=== PATIENT | female | born 1970 | race Caucasian/White ===

== ENCOUNTER 2016-08-04 10:35 | Outpatient (CLI) | payer OTHER | END 2016-08-04 10:36 | disposition home or self-care (01) | DX: J02.9 Acute pharyngitis, unspecified (principal) ==

== ENCOUNTER 2017-05-25 08:00 | Outpatient (CLI) | payer OTHER ==
[2017-05-25 18:52] LABS: HGB - HEMOGLOBIN 9.9 g/dL (12.0-16.0); MONOCYTES # (AUTO) 0.5 10^3/uL (0.0-1.0); NEUTROPHILS # (AUTO) 5.5 10^3/uL (1.5-6.6); RED CELL DISTRIBUTION WIDTH 16.6 % (12.0-15.0)
[2017-05-25 19:23] LABS: ALBUMIN 4.1 g/dL (3.2-5.5); ALBUMIN/GLOBULIN RATIO 1.4 (1.0-2.2); ALKALINE PHOSPHATASE 51 IU/L (42-121); ALT ALANINE AMINOTRANSFERASE 13 IU/L (10-60); AST ASPARTATE AMINOTRANSFERASE 20 IU/L (10-42); BILIRUBIN,TOTAL < 0.2 mg/dL (0.2-1.0); BUN - BLOOD UREA NITROGEN 16 mg/dL (6-20); CALCIUM 8.8 mg/dL (8.5-10.3); CARBON DIOXIDE - CO2 27 mmol/L (21-32); CHLORIDE 101 mmol/L (101-111); GFR - MDRD 60 (>89); GLUCOSE 170 mg/dL (70-100); SODIUM 135 mmol/L (135-145)
[2017-05-25 19:26] LABS: BASOPHILS % (AUTO) 0.6 %; EOSINOPHILS % (AUTO) 0.4 %; LYMPHOCYTES # (AUTO) 1.4 10^3/uL (1.5-3.5); LYMPHOCYTES % (AUTO) 18.9 %; MEAN CORPUSCULAR HEMOGLOBIN 25.1 pg (27.0-31.0); MEAN CORPUSCULAR HGB CONC 32.1 g/dL (32.0-36.0); MEAN CORPUSCULAR VOLUME 78.2 fL (81.0-99.0); MEAN PLATELET VOLUME 10.4 fL (7.9-10.8); MONOCYTES % (AUTO) 6.2 %; NEUTROPHILS % (AUTO) 73.9 %; PLT - PLATELET COUNT 176 10^3/uL (130-450); RED BLOOD COUNT 3.94 10^6/uL (4.20-5.40); WHITE BLOOD COUNT 7.5 x10^3/uL (4.8-10.8)
[2017-05-25 19:47] LABS: CRP - C-REACTIVE PROTEIN < 1.0 mg/dL (0-1.0)
== END 2017-05-25 08:01 | disposition home or self-care (01) ==
LOC: LAB.R 08:00
PROVIDERS: ATTEND Physician Assistant Medical
DX: R19.7 Diarrhea, unspecified (principal)
CPT/HCPCS: 80053; 85025; 85651; 86140

== ENCOUNTER 2017-06-26 08:10 | Outpatient (CLI) | payer OTHER ==
[2017-06-26 08:41] LABS: BASOPHILS % (AUTO) 1.1 %; EOSINOPHILS % (AUTO) 0.7 %; LYMPHOCYTES % (AUTO) 22.5 %; MEAN CORPUSCULAR HEMOGLOBIN 27.1 pg (27.0-31.0); MEAN CORPUSCULAR HGB CONC 33.3 g/dL (32.0-36.0); MEAN CORPUSCULAR VOLUME 81.5 fL (81.0-99.0); MEAN PLATELET VOLUME 9.8 fL (7.9-10.8); MONOCYTES # (AUTO) 0.3 10^3/uL (0.0-1.0); MONOCYTES % (AUTO) 6.9 %; NEUTROPHILS # (AUTO) 3.2 10^3/uL (1.5-6.6); NEUTROPHILS % (AUTO) 68.8 %; PLT - PLATELET COUNT 135 10^3/uL (130-450); RED BLOOD COUNT 4.08 10^6/uL (4.20-5.40); RED CELL DISTRIBUTION WIDTH 20.1 % (12.0-15.0); WHITE BLOOD COUNT 4.6 x10^3/uL (4.8-10.8)
== END 2017-06-26 08:11 | disposition home or self-care (01) ==
LOC: LAB 08:10
PROVIDERS: ATTEND Physician Assistant Medical
DX: D50.9 Iron deficiency anemia, unspecified (principal)
CPT/HCPCS: 36415; 82728; 85025

== ENCOUNTER 2019-07-12 09:27 | Outpatient (CLI) | payer OTHER ==
--- NOTE | 2019-07-12 11:40 | XRAY Report ---
Reason: COUGH Procedure Date: 07/12/2019 Accession Number: [id number] / [id number] Procedure: WCP - Chest 2 View X-Ray CPT Code: 91165 Final Report FULL RESULT: EXAM: CHEST RADIOGRAPHY 2 VIEWS EXAM DATE: 07/12/2019. CLINICAL HISTORY: Cough. COMPARISON: None. TECHNIQUE: PA and lateral views. FINDINGS: Lungs/Pleura: Normal vasculature. Small linear densities in the lower lateral left lung. The lungs are otherwise clear. No pleural fluid or pneumothorax. Mediastinum: Normal cardiac and mediastinal contours. Bones: Normal. IMPRESSION: Mild atelectasis or scarring of the left lower lung. Otherwise normal examination. RADIA
== END 2019-07-12 23:59 | disposition home or self-care (01) ==
LOC: DI.WCP 09:27
PROVIDERS: ATTEND Physician Assistant
DX: R05 Cough (principal)
CPT/HCPCS: 71046

== ENCOUNTER 2019-07-26 08:00 | Outpatient (CLI) | payer OTHER ==
[2019-08-02 09:59] LABS: B. PARAPERTUSSIS DNA NOT DETECTED; SOURCE NASAL
== END 2019-07-26 23:59 | disposition home or self-care (01) ==
LOC: LAB.WCP 08:00
PROVIDERS: ATTEND Family Medicine
DX: R05 Cough (principal)
CPT/HCPCS: 87798

== ENCOUNTER 2019-08-09 08:00 | Outpatient (CLI) | payer OTHER ==
[2019-08-09 16:59] LABS: BASOPHILS % (AUTO) 0.6 %; EOSINOPHILS # (AUTO) 0.4 10^3/uL (0.0-0.7); EOSINOPHILS % (AUTO) 7.8 %; HGB - HEMOGLOBIN 10.6 g/dL (12.0-16.0); LYMPHOCYTES # (AUTO) 0.7 10^3/uL (1.5-3.5); LYMPHOCYTES % (AUTO) 13.9 %; MEAN CORPUSCULAR HEMOGLOBIN 25.4 pg (27.0-31.0); MEAN CORPUSCULAR HGB CONC 30.3 g/dL (32.0-36.0); MEAN CORPUSCULAR VOLUME 83.9 fL (81.0-99.0); MEAN PLATELET VOLUME 12.3 fL (7.9-10.8); MONOCYTES # (AUTO) 0.4 10^3/uL (0.0-1.0); MONOCYTES % (AUTO) 7.5 %; NEUTROPHILS # (AUTO) 3.6 10^3/uL (1.5-6.6); NEUTROPHILS % (AUTO) 69.8 %; PLT - PLATELET COUNT 231 10^3/uL (130-450); RED BLOOD COUNT 4.17 10^6/uL (4.20-5.40); RED CELL DISTRIBUTION WIDTH 16.5 % (12.0-15.0); WHITE BLOOD COUNT 5.1 x10^3/uL (4.8-10.8)
[2019-08-09 17:15] LABS: ALBUMIN/GLOBULIN RATIO 1.3 (1.0-2.2); BILIRUBIN,TOTAL 0.5 mg/dL (0.2-1.0); CALCIUM 8.9 mg/dL (8.5-10.3); CREATININE 0.9 mg/dL (0.4-1.0)
[2019-08-09 17:33] LABS: FERRITIN 7.3 ng/mL (11.0-306.8)
== END 2019-08-09 23:59 | disposition home or self-care (01) ==
LOC: LAB.WCP 08:00
PROVIDERS: ATTEND Family Medicine
DX: D50.9 Iron deficiency anemia, unspecified (principal)
CPT/HCPCS: 36415; 80053; 82607; 82728; 85025

== ENCOUNTER 2019-08-13 09:42 | Outpatient (CLI) | payer OTHER ==
--- NOTE | 2019-08-13 11:05 | CT Report ---
Reason: CHRONIC SINUSITIS Procedure Date: 08/13/2019 Accession Number: [id number] / [id number] Procedure: CT - Sinuses CPT Code: Final Report FULL RESULT: EXAM: CT SINUS EXAM DATE: 08/13/2019 10:27 AM. HISTORY: 48-year-old woman with chronic sinusitis. COMPARISONS: None. TECHNIQUE: Routine multi-axial CT imaging performed through the sinuses. Iodinated IV contrast: None. Reconstructions: Multiplanar reformats. In accordance with CT protocol optimization, one or more of the following dose reduction techniques were utilized for this exam: automated exposure control, adjustment of mA and/or KV based on patient size, or use of iterative reconstructive technique. FINDINGS: RIGHT Frontal: Hypoplastic. Moderate mucosal thickening lines the small aerated sinus. Ethmoid: Moderate mucosal thickening. Maxillary: Mild to moderate mucosal thickening. Mucosal thickening has a lobular contour suggestive of underlying polyposis. Medial bony wall is partially demineralized, likely reflecting chronic inflammation. Sphenoid: Trace mucosal thickening. Drainage Pathways: The frontal recess and ostiomeatal complex are obscured were occluded by mucosal thickening. The sphenoethmoidal recess is narrowed by mild mucosal thickening. LEFT Frontal: Clear. Ethmoid: Clear. Maxillary: Clear. Defect is present in the medial wall. Sphenoid: Clear. The septum is deviated to the left resulting in a small left sphenoid sinus. Drainage Pathways: The frontal recess, ostiomeatal complex and sphenoethmoidal recess are patent and normal. Nasal Cavity: Clear. The septum is deviated to the right. Osseous Structures: No hyperostosis or fracture. There is demineralization of the medial wall of the right maxillary sinus, suggestive of chronic inflammation. Orbits: Unremarkable. Other: None. IMPRESSION: 1. Right-sided mucosal thickening with obstructive pattern. Mucosal thickening in the right maxillary sinus has a lobular contour suggestive of underlying polyposis and chronic sinusitis. RADIA
== END 2019-08-13 09:43 | disposition home or self-care (01) ==
LOC: DI 09:42
PROVIDERS: ATTEND Family Medicine
DX: J32.9 Chronic sinusitis, unspecified (principal)
CPT/HCPCS: 70486

== ENCOUNTER 2019-11-24 15:21 | Outpatient (CLI) | payer OTHER ==
--- NOTE | 2019-11-24 17:41 | XRAY Report ---
Reason: CONTUSION OF LOWER LEG Procedure Date: 11/24/2019 Accession Number: [id number] / [id number] Procedure: WCP - Tib/Fib LT CPT Code: Final Report FULL RESULT: PROCEDURE: Tib/Fib LT INDICATIONS: CONTUSION OF LOWER LEG TECHNIQUE: 2 views of the tibia and fibula were acquired. COMPARISON: No previous study is available for comparison. FINDINGS: Bones: No fractures or dislocations. No suspicious bony lesions. Soft tissues: No suspicious soft tissue calcifications or masses. IMPRESSION: No acute radiographic abnormality is identified. If symptoms persist with conservative management, cross-sectional imaging with CT or MRI may be obtained. Reviewed by: Sukumar Godinez MD on 11/24/2019 5:40 PM PDT Approved by: Sukumar Godinez MD on 11/24/2019 5:40 PM PDT Station ID: [id number]
== END 2019-11-24 23:59 | disposition home or self-care (01) ==
LOC: DI.WCP 15:21
PROVIDERS: ATTEND Family Medicine
DX: S80.12XA Contusion of left lower leg, initial encounter (principal)

== ENCOUNTER 2020-02-14 15:15 | Outpatient (CLI) | payer BC, OTHER ==
--- NOTE | 2020-02-14 17:37 | Ultrasound Report ---
PROCEDURE: Pelvic w/Transvaginal INDICATIONS: ABN UTERINE AND VAGINAL BLEEDING TECHNIQUE: Real-time scanning was performed of the pelvic organs, with image documentation. Additional endovagi nal scanning was necessary due to incomplete visualization of the adnexal and endometrial structures by transabdominal scanning. COMPARISON: Ultrasound pelvis 06/06/2014. FINDINGS: Transabdominal scanning: Limited scanning through the kidneys shows no hydronephrosis. No pathologi c free abdominal or pelvic fluid. Endovaginal scanning: Uterus: Uterus is normal in size at 0.2 x 4.5 x 5.7 cm. The endometrium measures 9 mm in combined t hickness. There is an appearance of an endometrial echogenicity measuring 16 x 8 x 11 mm. This was p resent on prior exam. A focus of heterotopic echogenicity is noted within the right anterior subseros al region of the uterus measuring 19 x 20 x 17 mm compared to 17 x 10 x 10 mm. Ovaries: Right ovary measures 3.0 x 2.3 x 2.3 cm, volume 18.5 cc. Left ovary measures 2.6 x 2.2 x 2. 3 cm, volume 6.7 cc. IMPRESSION: 1. Appearance of echogenicity within the endometrium, poorly characterized. However, it appears gross ly unchanged compared to prior exam. This was suspected to represent an endometrial polyp or potentia lly pedunculated fibroid. If further evaluation is worked, sonohysterogram is recommended. 2. Uterine focus of echogenicity suggestive of fibroid, relatively unchanged. Reviewed by: Gi Palomo MD on 02/14/2020 5:35 PM PDT Approved by: Gi Palomo MD on 02/14/2020 5:35 PM PDT Station ID: [id number]
== END 2020-02-14 15:16 | disposition home or self-care (01) ==
LOC: DI 15:15
PROVIDERS: ATTEND Obstetrics & Gynecology
DX: N93.8 Other specified abnormal uterine and vaginal bleeding (principal)
CPT/HCPCS: 76830; 76856

== ENCOUNTER 2020-04-20 13:46 | Outpatient (CLI) | payer BC, OTHER ==
[2020-04-20 13:59] LABS: BASOPHILS # (AUTO) 0.1 10^3/uL (0.0-0.1); EOSINOPHILS # (AUTO) 0.1 10^3/uL (0.0-0.7); EOSINOPHILS % (AUTO) 1.1 %; LYMPHOCYTES # (AUTO) 1.2 10^3/uL (1.5-3.5); LYMPHOCYTES % (AUTO) 18.8 %; MEAN CORPUSCULAR HEMOGLOBIN 27.6 pg (27.0-31.0); MEAN CORPUSCULAR HGB CONC 30.8 g/dL (32.0-36.0); MEAN CORPUSCULAR VOLUME 89.7 fL (81.0-99.0); MEAN PLATELET VOLUME 11.4 fL (7.9-10.8); MONOCYTES # (AUTO) 0.4 10^3/uL (0.0-1.0); MONOCYTES % (AUTO) 6.9 %; NEUTROPHILS # (AUTO) 4.4 10^3/uL (1.5-6.6); PLT - PLATELET COUNT 200 10^3/uL (130-450); RED BLOOD COUNT 3.98 10^6/uL (4.20-5.40); RED CELL DISTRIBUTION WIDTH 13.9 % (12.0-15.0); WHITE BLOOD COUNT 6.1 x10^3/uL (4.8-10.8)
== END 2020-04-20 13:47 | disposition home or self-care (01) ==
LOC: LAB 13:46
PROVIDERS: ATTEND Obstetrics & Gynecology
DX: Z01.812 Encounter for preprocedural laboratory examination (principal); Z20.828 Contact with and (suspected) exposure to other viral communicable diseases; N84.0 Polyp of corpus uteri; N93.8 Other specified abnormal uterine and vaginal bleeding
CPT/HCPCS: 36415; 85025

== ENCOUNTER 2020-04-26 08:03 | Day surgery (SDC) | payer BC, OTHER ==
[~2020-04-26 08:03] MED LIST: ACETAMINOPHEN 1,000 MG/100 ML 100 ML IV ONE; CELECOXIB 100 MG CAPSULE PO ONE; GABAPENTIN 400 MG CAPSULE ONE
[2020-04-26] MEDS ORDERED: LACTATED RINGERS 1,000 ML IV ONE ×2 (08:30→12:18)
--- NOTE | 2020-04-26 08:34 | OPERATIVE REPORT ---
Operative Report - General Procedure Date: 04/26/20 Planned Procedure: Hysteroscopy D&C with polypectomy and Novasure endometrial ablatiojn Pre-Op Diagnosis: Dysfunctional uterine bleeding; polyp on ultrasound Procedure Performed: Hysteroscopy D&C with polypectomy and Novasure ablation Post Op Diagnosis: Same - Procedure Note Primary Surgeon: Heather Campbell MD Anesthesia Provider: Lucas Russell CRNA Anesthesia Technique: General ET tube Pathology: uterine contents IV Fluids (mL): 700 Estimated Blood Loss (mL): 5 Urine Output (mL): 250 Indications: The patient is a 49-year-old G3, P3 here for hysteroscopy D&C with polypectomy and NovaSure ablation. The patient has been seen and evaluated by Dr. Montelongo on 02/07/2020 as well as 03/13/2020. The patient was noted at that time to have heavy vaginal bleeding through, which she soaks a super tampon pad q. 40 minutes for one to two days per cycle. This has caused significant anemia, resulting in a hematocrit of 32.8 on 12/14/2019. She underwent a pelvic ultrasound during her evaluation with Dr. Montelongo on 02/14/2020. Endometrium is measuring 9 mm combined thickness, but had an endometrial echogenicity measuring 16 x 8 x 11 mm grossly unchanged from prior exam suspected to be endometrial polyp or potentially pedunculated fibroid. The patient had been counseled by Dr. Montelongo that an endometrial biopsy would not be necessary prior to this procedure. I had an extensive discussion regarding the risks of endometrial hyperplasia and malignancy with dysfunctional uterine bleeding and the ability of the endometrial ablation to mask the symptoms of early endometrial carcincoma. She declined EMB at my assessment despite marriage and family counselor. The patient has good understanding of the situation. She has had 3 prior C-sections and a tubal ligation. Her last Pap smear is not documented and we will collect a Pap smear during her procedure. No other changes in her health history since time of prior exam. Findings: Uterine cavity sounded to 9.5 cm. Polyp in the anterior wall of the endometrial cavity. Otherwise normal appearing cavity with bilateral tubal ostia noted. Complications: none - Other Other Information/Narrative: Risks benefits and alternatives to the procedure were reviewed. Consent was again confirmed. Patient was taken to the operating room where she underwent general anesthesia. She was positioned in dorsolithotomy position with legs resting in yellowfin stirrups. She was prepped and draped in the usual sterile fashion. Preoperative antibiotics were not indicated. Preoperative checklist was performed. Exam under anesthesia was performed. Speculum was placed in the vagina and the cervix was visualized. Single-tooth tenaculum was placed at the anterior cervical lip. Paracervical block was administered using a total of 20 cc of 0.5% bupivicaine with epinephrine was injected at the 4:00 and 8:00 positions lateral to the portio of the cervix. The cervical os was serially dilated with Hegar dilators to accommodate the caliber of the diagnostic hysteroscope. Uterus sounded to 9 cm. The hysteroscope was inserted and findings were noted as above. The hysteroscopic morcellator was inserted through the operative port. The intrauterine polyps were morcellated under direct visualization. Uterine cavity was smooth at close of the procedure. Hysteroscope was removed. Sharp curettage D&C was performed with sharp curettage. The Novasure endometrial ablation instrument was inserted into the uterus. The uterus had sounded to 9.5 cm, the cervical length was 4 cm. The uterine cavity was 5.5 cm in length and 4.5 cm in width. The assessment of integrity of the uterine cavity was passed. The Novasure fired at 136 gipson for 59 seconds. All instruments were removed from the uterus. Tenaculum was removed. Tenaculum sites were noted to be hemostatic after application of silver nitrate. All instruments were removed from the vagina. Procedure was well-tolerated without complication. Fluid deficit: 160 cc NS
[2020-04-26 08:51] LABS: HCG UR QUAL NEGATIVE
--- NOTE | 2020-04-26 09:50 | ANESTHESIA ---
Pre-Anesthesia VS, & Labs - Diagnosis endometrial polyp, abnormal uterine/vaginal bleeding - Procedure myosure hysteroscopy, D&C w/polypectomy Vital Signs: Temp Pulse Resp BP Pulse Ox 36.1 C L 82 16 123/94 H 100 04/26/20 08:24 04/26/20 08:24 04/26/20 08:24 04/26/20 08:24 04/26/20 08:24 Height: 5 ft 4 in Weight (kg): 74.7 kg Body Mass Index: 28.3 BMI Classification: Overweight - NPO >8 hours - Is Patient ?: No - Lab Results Current Lab Results: Laboratory Tests 04/26/20 08:47: POC Whole Bld Glucose 87 Home Medications and Allergies Allergies/Adverse Reactions: Allergies Allergy/AdvReac Type Severity Reaction Status Date / Time No Known Drug Allergies Allergy Verified 03/23/15 17:44 Anes History & Medical History - Medical History Cardiovascular: reports: None Pulmonary: reports: None Gastrointestinal: reports: None Urinary: reports: None Musculoskeletal: reports: None Endocrine/Autoimmune: reports: None Skin: reports: None - Surgical History Gynecologic: section (3), Tubal ligation Dermatologic: Other (scalp/chin lac repairs) Exam General: Alert, Oriented x3 Dental: WNL Mouth Openin Fingerbreadth Neck Mobility: Normal Mallampati classification: II Thyromental Distance: 4-6 cm Respiratory: Lungs clear, Normal breath sounds, No respiratory distress Cardiovascular: Regular rate Mental/Cognitive Status: Alert/Oriented X3, Normal for patient Cognitive Status: Within normal limits Plan Anesthesia Type: General Consent for Procedure(s) Verified and Reviewed: Yes Code Status: Attempt Resuscitation ASA classification: 1-Healthy patient Is this case an emergency?: No
[2020-04-26] MEDS ORDERED: PROPOFOL 200 MG/20 ML VIAL IVP ONE (10:06)
[2020-04-26] MEDS ORDERED: fentaNYL 100 MCG/2 ML VIAL ONE (10:06)
[2020-04-26] MEDS ORDERED: DEXAMETHASONE 4 MG/ML VIAL ONE (10:06)
[2020-04-26] MEDS ORDERED: MIDAZOLAM 2 MG/2 ML VIAL ONE (10:06)
[2020-04-26] MEDS ORDERED: LIDOCAINE-MPF 2% 5 ML VIAL ONE (10:06)
[2020-04-26] MEDS ORDERED: ONDANSETRON 4 MG/2 ML VIAL ONE (10:07)
[2020-04-26] MEDS ORDERED: BUPIVACAINE 0.5%-EPI 1:200000 PF 30 ML VIAL ONE (11:06)
[2020-04-26] MEDS ORDERED: BUPIVACAINE 0.5%-EPI 1:200000 PF 30 ML VIAL SUBQ ONE (11:17)
[2020-04-26] MEDS ORDERED: SILVER NITRATE APPLICATOR TOP ONE ×4 (11:33→11:45)
[2020-04-26] MEDS ORDERED: oxyCODONE 5 MG TABLET PO PRN (11:57)
[2020-04-26] MEDS ORDERED: ATROPINE ABBOJECT 1 MG/10 ML SYRINGE IVP PRN (12:03)
[2020-04-26] MEDS ORDERED: HYDROmorphone 0.5 MG/0.5 ML SYRINGE IVP PRN (12:03)
[2020-04-26] MEDS ORDERED: fentaNYL 100 MCG/2 ML VIAL IVP PRN (12:03)
[2020-04-26] MEDS ORDERED: ONDANSETRON 4 MG/2 ML VIAL IVP PRN (12:03)
[2020-04-26] MEDS ORDERED: ePHEDrine 50 MG/ML VIAL IVP PRN (12:03)
[2020-04-26] MEDS ORDERED: NALOXONE 0.4 MG/ML VIAL IVP PRN (12:03)
[2020-04-26] MEDS ORDERED: METOCLOPRAMIDE 10 MG/2 ML VIAL IVP PRN (12:03)
[2020-04-26] MEDS ORDERED: MORPHINE 2 MG/ML CARPUJECT IVP PRN (12:03)
[2020-04-26 12:56] VITALS: BP 133/94
[2020-04-26] MEDS ORDERED: LACTATED RINGERS 1,000 ML IV SCH (13:00)
--- NOTE | 2020-04-26 13:59 | ANESTHESIA POST OP EVALUATION ---
Anesthesia Post Eval - Post Anesthesia Eval Vitals: Last Vital Signs Temp 36.2 C L 04/26/20 12:55 Pulse 75 04/26/20 12:55 Resp 12 04/26/20 12:55 BP 133/94 H 04/26/20 12:55 Pulse Ox 90 L 04/26/20 12:55 CV Function Including HR & BP: positive: Stable Pain Control: positive: Satisfactory Nausea & Vomiting: positive: Negative Mental Status: positive: Baseline Respiratory Status: Airway Patent Hydration Status: Satisfactory Anesthesia Complications: positive: None
== END 2020-04-26 08:04 | disposition home or self-care (01) ==
LOC: SDS 08:03
PROVIDERS: ATTEND Obstetrics & Gynecology
PROC: 0UB98ZZ Excision of Uterus, Via Natural or Artificial Opening Endoscopic (ICD-10-PCS; principal; 2020-04-26 09:30)
DX: N84.0 Polyp of corpus uteri (principal); D50.0 Iron deficiency anemia secondary to blood loss (chronic)
CPT/HCPCS: 58661; 81025; A9270; J0131; J7120

== ENCOUNTER 2020-05-08 07:00 | Outpatient (CLI) | payer BC, OTHER ==
[2020-05-08 15:59] LABS: BILIRUBIN,URINE NEGATIVE (NEGATIVE); GLUCOSE, URINE (UA) NEGATIVE (NEGATIVE); KETONES,URINE (UA) NEGATIVE (NEGATIVE); LEUKOCYTE ESTERASE, URINE NEGATIVE (NEGATIVE); NITRITE,URINE NEGATIVE (NEGATIVE); OCCULT BLOOD,URINE TRACE-INTA (NEGATIVE); PROTEIN,URINE NEGATIVE (NEGATIVE); UROBILINOGEN,URINE 0.2 (NORMAL) E.U./dL (NORMAL)
[2020-05-08 16:02] LABS: CLARITY,URINE CLEAR (CLEAR)
[2020-05-08 16:18] LABS: BACTERIA,URINE Rare /HPF (None Seen); MUCUS,URINE Few Strands; RBC,URINE 0-5 /HPF (0-5); SQUAMOUS EPITHELIAL CELL,UR RARE Squamous (<= Few); WBC,URINE 0-3 /HPF (0-5)
== END 2020-05-08 23:59 | disposition home or self-care (01) ==
LOC: LAB.R 07:00
PROVIDERS: ATTEND Obstetrics & Gynecology
DX: R30.0 Dysuria (principal)
CPT/HCPCS: 81001; 87086

== ENCOUNTER 2020-09-05 14:05 | Emergency (ER) | payer OTHER, BC ==
[2020-09-05 14:14] VITALS: BP 124/89
--- NOTE | 2020-09-05 14:25 | ED Physician Documentation ---
History of Present Illness - Stated complaint Stated Complaint: L ANKLE PX - Chief complaint Chief Complaint: Ext Problem - Additonal information Additional information: 49-year-old female who is an employee here at [employer] presents to the emergency department for evaluation of acute left ankle pain. During performance of her work duties that she was stepping up into a van and her left ankle slipped off the running board causing a very large contusion and abrasion to the lateral ankle. She initially did not think much of the injury and continue to perform her duties however she has had progressive swelling and increasing pain in this area. No previous history of injury to the ankle. 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 Review of Systems Constitutional: reports: Reviewed and negative Eyes: reports: Reviewed and negative Nose: reports: Reviewed and negative Throat: reports: Reviewed and negative Cardiac: reports: Reviewed and negative Respiratory: reports: Reviewed and negative GI: reports: Reviewed and negative : reports: Reviewed and negative Skin: reports: Abrasion (s) (left lateral ankle) Musculoskeletal: reports: Joint pain (left ankle) PD PAST MEDICAL HISTORY - Past Medical History Cardiovascular: None Respiratory: None Endocrine/Autoimmune: None GI: None : None HEENT: Chronic vision loss, Chronic sinusitis Psych: None Musculoskeletal: None Derm: None - Past Surgical History /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: section (3), Tubal ligation Derm: Other (scalp/chin lac repairs) - Present Medications Home Medications: Ambulatory Orders Medication Instructions Recorded Confirmed Acetaminophen [Tylenol] 650 mg PO Q6H PRN #60 tablet 04/26/20 Docusate Sodium 100Mg Capsule 100 - 200 mg PO BID PRN #30 capsule 04/26/20 [Colace 100Mg Capsule] Ibuprofen [Motrin] 600 mg PO Q6H PRN #60 tab 04/26/20 oxyCODONE [Roxicodone] 5 mg PO Q4H PRN #10 tablet 04/26/20 - Allergies Allergies/Adverse Reactions: Allergies Allergy/AdvReac Type Severity Reaction Status Date / Time No Known Drug Allergies Allergy Verified 09/05/20 14:14 PD ED PE EXPANDED - General General: Alert, No acute distress - Extremities Extremities: Left ankle (Large area of contusion and abrasion on the left lateral ankle with tenderness just above the lateral malleolus. Large hematoma 3 x 4 cm. Normal flexion and extension inversion eversion of the ankle. Patient able to bear partial weight. ), Left foot (no tenderness metatarsals, deformity or ecchymosis) Results - Vitals Vitals: Vital Signs - 24 hr 09/05/20 14:10 Temperature 36.7 C Heart Rate 78 Respiratory 18 Rate Blood Pressure 124/89 H O2 Saturation 99 Oxygen O2 Source Room air - Rads (name of study) left ankle Radiology: Final report received (No fracture or osseous lesion.) PD MEDICAL DECISION MAKING - ED course Complexity details: reviewed results, re-evaluated patient ED course: 49-year-old female presents emergency department for evaluation of acute left ankle pain sustained when she slipped off the running board while stepping into the van for her job here at [employer]. X-ray does not reveal any obvious fractures. She does have a large abrasion and hematoma over the lateral ankle. Patient is able to walk and bear partial weight. She was placed in an Fredy wrap and given crutches for comfort. Recommend ice as well as ibuprofen. 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 Emergent return precautions were discussed. Appropriate labor and industries paperwork completed for [employer]. Departure - Departure Disposition: 01 Home, Self Care Clinical Impression: Contusion of left ankle Qualifiers: Encounter type: initial encounter Qualified Code(s): S90.02XA - Contusion of left ankle, initial encounter Condition: Stable Record reviewed to determine appropriate education?: Yes Instructions: ED Contusion Foot Comments: You are seen in the emergency department today for left ankle contusion after slipping off the running board of the van here at work. The x-ray does not show any acute fractures or breaks. The contusion and hematoma should begin to resolve over the next week. I recommend that use the Fredy wrap when out of bed. Apply Neosporin to your abrasion. Use crutches as needed for comfort. Return to the emergency department if you have any concerns of infection have increased pain or your symptoms fail to resolve over the next 2 weeks You are cleared to return to full work without limitations tomorrow.
--- NOTE | 2020-09-05 14:39 | XRAY Report ---
PROCEDURE: Ankle 3 View LT INDICATIONS: twist, pain laterally TECHNIQUE: 3 views of the ankle were acquired. COMPARISON: None FINDINGS: Bones: No fractures or dislocations. Ankle mortise is normally aligned. No suspicious bony lesions . Soft tissues: No tibiotalar joint effusion. Achilles tendon appears normal. Lateral soft tissue sw elling is noted and ligamentous injury cannot be excluded. IMPRESSION: No fracture. No osseous lesion. If there are persistent symptoms or continued clinical concern for p athology, then repeat plain film radiographs (7-10 days) or advanced imaging (CT, MR, bone scan) shou ld be considered for further evaluation. Reviewed by: Gracie Tinsley MD, PhD on 09/05/2020 2:37 PM PDT Approved by: Gracie Tinsley MD, PhD on 09/05/2020 2:37 PM PDT Station ID: [id number]
--- OUTSIDE RECORDS SUMMARY | 2020-09-05 15:14 | EXTERNAL MEDICAL SUMMARY RPT | Continuity of Care Document ---
:1970 Demographics Phone Unavailable Preferred Language Unknown Marital Status Unknown Yarsanism Affiliation Unknown Race Unknown Ethnic Group Unknown Author Organization [facility] Address [address] [id number] Phone Social History date description facility [id number]
== END 2020-09-05 15:01 | disposition home or self-care (01) ==
LOC: ED 14:05
DX: S90.02XA Contusion of left ankle, initial encounter (principal); S90.512A Abrasion, left ankle, initial encounter; W18.43XA Slipping, tripping and stumbling without falling due to stepping from one level to another, initial encounter; Y92.9 Unspecified place or not applicable; Y99.0 Civilian activity done for income or pay
CPT/HCPCS: 99282; 99283

== ENCOUNTER 2020-09-10 08:00 | Outpatient (CLI) | payer OTHER, BC ==
--- NOTE | 2020-09-11 08:26 | XRAY Report ---
PROCEDURE: Tib/Fib LT INDICATIONS: SPRAIN OF LIGAMENT OF L ANKLE TECHNIQUE: 2 views of the tibia and fibula were acquired. COMPARISON: Ankle radiograph dated 09/05/2020 FINDINGS: Bones: No fractures or dislocations. No suspicious bony lesions. Soft tissues: No suspicious soft tissue calcifications or masses. IMPRESSION: No lower leg fracture or dislocation. No gross soft tissue abnormality. Reviewed by: Cosme Hamm MD on 09/11/2020 8:24 AM PDT Approved by: Cosme Hamm MD on 09/11/2020 8:24 AM PDT Station ID: [id number]
== END 2020-09-10 23:59 | disposition home or self-care (01) ==
LOC: DI.N 08:00
PROVIDERS: ATTEND Nurse Practitioner
DX: S93.402A Sprain of unspecified ligament of left ankle, initial encounter (principal)

== ENCOUNTER 2020-11-08 08:42 | Outpatient (CLI) | payer BC, OTHER ==
--- NOTE | 2020-11-08 12:23 | XRAY Report ---
PROCEDURE: Ankle 3 View LT INDICATIONS: SPRAIN OF LEFT ANKLE TECHNIQUE: 3 views of the ankle were acquired. COMPARISON: Left ankle 09/05/2020 FINDINGS: Bones: No fractures or dislocations. Ankle mortise is normally aligned. No suspicious bony lesions . Soft tissues: No tibiotalar joint effusion. Achilles tendon appears normal. IMPRESSION: No trauma found. Normal alignment. Reviewed by: Marty Tafoya MD on 11/08/2020 12:22 PM PDT Approved by: Marty Tafoya MD on 11/08/2020 12:22 PM PDT Station ID: [id number]
== END 2020-11-08 08:43 | disposition home or self-care (01) ==
LOC: DI.N 08:42
PROVIDERS: ATTEND Physician Assistant
DX: S93.492A Sprain of other ligament of left ankle, initial encounter (principal)

== ENCOUNTER 2020-12-05 07:09 | Outpatient (CLI) | payer OTHER, BC ==
--- NOTE | 2020-12-05 11:15 | MRI Report ---
PROCEDURE: Ankle LT W/O INDICATIONS: SPRAIN OF ANKLE TECHNIQUE: Noncontrast sagittal T1 spin echo and T2 fast spin echo with fat saturation, axial proton density fas t spin echo and T2 fast spin echo with fat saturation, coronal T1 spin echo and T2 fast spin echo wit h fat saturation through the ankle/hindfoot. COMPARISON: None. FINDINGS: Image quality: Excellent. Bones and joints: Mild soft tissue swelling and edema surrounding ankle joint is seen more prominent over lateral malleolus. No bone marrow contusions or fractures. No hindfoot coalitions. No osteoch ondral injuries of the talar dome. No pathologic joint effusions. Medial structures: The posterior tibialis, flexor digitorum longus, and flexor hallucis longus tendo ns are intact. The posterior tibial neurovascular bundle appears normal within the tarsal tunnel, wi thout extrinsic mass effect. The deep layer (anterior and posterior tibiotalar ligaments) and superf icial layer (tibionavicular, tibiospring, and tibiocalcaneal ligaments) of the deltoid ligament appea r normal. The spring ligament components (superomedial calcaneonavicular, medioplantar oblique calca neonavicular, and inferoplantar longitudinal ligaments) are intact. Lateral structures: The anterior talofibular, calcaneofibular, and posterior talofibular ligaments a ppear mildly thickened with low-grade intrasubstance T2 hyperintense signal suggestive of sprain/low- grade partial thickness tear.. More superiorly, the anterior and posterior tibiofibular ligaments ap pear normal, as is the intermalleolar ligament. The tibiofibular syndesmosis is normal in width at 2 mm or less. The peroneus longus and brevis tendon are mildly thickened with intrasubstance T2 hyper intense signal and surrounding soft tissue edema at the level of anterior calcaneus suggestive of ten dinosis/low-grade partial thickness tear. Adjacent bony peroneal tubercle and retrotrochlear prominen ce are normal in size. The sinus tarsi demonstrates normal fatty signal, without edema, fibrosis, or cyst formation. Visualized sinus tarsi components (cervical ligament, interosseous talocalcaneal li gament, roots of the inferior extensor retinaculum) appear normal. Anterior structures: The tibialis anterior, extensor hallucis longus, and extensor digitorum longus tendons appear intact. Posterior and plantar structures: Achilles tendon is intact. Medial and lateral bands of the planta r fascia are of normal thickness. No abductor digiti quinti muscle atrophy to suggest Carter neuropa thy. IMPRESSION: 1. Mild ankle soft tissue swelling predominantly along lateral aspect. No marrow edema. No fracture o r dislocation. No significant joint effusion. 2. Low-grade sprain/partial thickness tear involving anterior and posterior talofibular ligaments and calcaneofibular ligament. 3. Tendinosis and low-grade intrasubstance partial thickness tear involving peroneus tendons at the l evel of lateral malleolus extending along lateral aspect of mid to anterior calcaneus. 4. Rest of the ankle tendons and ligaments are grossly intact. Reviewed by: Cosme Hamm MD on 12/05/2020 11:14 AM PDT Approved by: Cosme Hamm MD on 12/05/2020 11:14 AM PDT Station ID: [id number]
== END 2020-12-05 07:10 | disposition home or self-care (01) ==
LOC: DI 07:09
PROVIDERS: ATTEND Physician Assistant
DX: S93.492A Sprain of other ligament of left ankle, initial encounter (principal); S93.412A Sprain of calcaneofibular ligament of left ankle, initial encounter; S96.812A Strain of other specified muscles and tendons at ankle and foot level, left foot, initial encounter

== ENCOUNTER 2021-12-01 13:27 | Emergency (ER) | payer BC, OTHER ==
[2021-12-01 13:42] VITALS: BP 136/91
[2021-12-01] MEDS ORDERED: TETANUS/DIPHTHERIA/PERTUSSIS 0.5 ML SYRINGE IM ONE (14:15)
--- NOTE | 2021-12-01 14:17 | ED Physician Documentation ---
PD HPI LOWER EXT INJURY - Stated complaint Stated Complaint: L LEG LAC - Chief complaint Chief Complaint: Laceration - History obtained from History obtained from: Patient - History of Present Illness PD HPI LOW EXT INJURY LOCATION: Left Type of injury: Laceration Where injury occurred: Home Timing - details: Abrupt onset Pain level max: 4 Pain level now: 3 Improved by: Rest Worsened by: Moving, Palpating Contributing factors: No: Anticoagulated - Additional information Additional information: Patient is a 51-year-old female who presents to the emergency department for laceration of the left leg, it is the medial aspect of the knee. This was from a chain saw at home today. Unknown last tetanus. Not anticoagulated. 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: section (3), Tubal ligation Derm: Other (scalp/chin lac repairs) - Present Medications Home Medications: Ambulatory Orders Medication Instructions Recorded Confirmed Acetaminophen [Tylenol] 650 mg PO Q6H PRN #60 tablet 04/26/20 Docusate Sodium 100Mg Capsule 100 - 200 mg PO BID PRN #30 capsule 04/26/20 [Colace 100Mg Capsule] Ibuprofen [Motrin] 600 mg PO Q6H PRN #60 tab 04/26/20 - Allergies Allergies/Adverse Reactions: Allergies Allergy/AdvReac Type Severity Reaction Status Date / Time No Known Drug Allergies Allergy Verified 12/01/21 13:40 - Social History Does the pt smoke?: No Smoking Status: Never smoker Does the pt drink ETOH?: No Does the pt have substance abuse?: No - Immunizations Immunizations are current?: Yes PD ED PE NORMAL - Vitals Vital signs reviewed: Yes - General General: Alert and oriented X 3, No acute distress - Derm Derm: Warm and dry - Extremities Extremities: Other (3 cm laceration to the medial aspect of the left knee. No active bleeding. Neurovascular intact. Into the subcutaneous fat. Does not penetrate to the bone or joint.) - Neuro Neuro: Alert and oriented X 3 Results - Vitals Vitals: Vital Signs - 24 hr 12/01/21 13:40 Temperature 37.0 C Heart Rate 82 Respiratory 18 Rate Blood Pressure 136/91 H O2 Saturation 99 Oxygen O2 Source Room air Procedures - Laceration (location) Left knee Length in cm: 3 Wound type: Linear, Into subcut fat, Contaminated Neurovascular status: Sensory intact, Motor intact, Vascular intact Tendon involvement: Tendon intact Anesthesia: Lidocaine 1% Wound preparation: Irrigated copiously NS, Wound explored, To the base Skin layer closure: [place] (5) Other: Patient tolerated well, No complications, Neurovascular intact, Dressing applied, Tetanus booster given (tdap) PD MEDICAL DECISION MAKING - ED course Complexity details: considered differential, d/w patient ED course: Laceration repaired with brandyn. Tolerated well. Tdap given. Warnings of infection and instructions on wound care given at bedside. Patient counseled regarding signs and symptoms for which I believe and urgent re-evaluation would be necessary. Patient with good understanding of and agreement to plan and is comfortable going home at this time This document was made in part using voice recognition software. While efforts are made to proofread this document, sound alike and grammatical errors may occur. Departure - Departure Disposition: 01 Home, Self Care Clinical Impression: Leg laceration Qualifiers: Encounter type: initial encounter Laterality: left Qualified Code(s): S81.812A - Laceration without foreign body, left lower leg, initial encounter Condition: Good Instructions: ED Laceration Ext Sutr Stap Tape Follow-Up: Michael Aguilar DO [Primary Care Provider] - Comments: Please follow-up with your doctor in 10 to 14 days for staple removal. Return if you notice redness, swelling or drainage from the wound.
== END 2021-12-01 14:49 | disposition home or self-care (01) ==
LOC: ED 13:27
DX: S81.012A Laceration without foreign body, left knee, initial encounter (principal); W29.3XXA Contact with powered garden and outdoor hand tools and machinery, initial encounter; Y92.009 Unspecified place in unspecified non-institutional (private) residence as the place of occurrence of the external cause
CPT/HCPCS: 12002; 90471; 99283

== ENCOUNTER 2023-04-03 15:15 | Outpatient (CLI) | payer BC ==
[2023-04-03 19:39] LABS: CALCIUM 9.7 mg/dL (8.5-10.3); CREATININE 0.9 mg/dL (0.6-1.3); POTASSIUM 3.7 mmol/L (3.5-4.5); URIC ACID 4.6 mg/dL (2.3-6.6)
== END 2023-04-03 15:30 | disposition home or self-care (01) ==
LOC: LAB.N 15:15
PROVIDERS: ATTEND Family Medicine
DX: M79.671 Pain in right foot (principal); M79.675 Pain in left toe(s)
CPT/HCPCS: 36415; 80048; 84550